=== PATIENT | male | born 1965 ===

== ENCOUNTER 2025-10-09 19:57 | Emergency (ER) | payer MEDICAID ==
[~2025-10-09] VITALS: Ht 182.9 cm; Wt 88.6 kg
[2025-10-09 20:34] LABS: PLATELET COUNT (AUTO) 367 K/uL (150-450); RED BLOOD CELL COUNT(AUTO) 4.75 MIL/uL (4.50-5.90); RED CELL DISTRIBUTION WIDTH 14.3 % (11.5-14.5); WHITE BLOOD COUNT (AUTO) 8.7 K/uL (4.5-11.0)
[2025-10-09 20:39] LABS: COVID AG,FIA SOURCE NASAL SWAB
[2025-10-09 20:43] LABS: CALCIUM, TOTAL 8.7 mg/dL (8.8-10.5); CREATININE 1.10 mg/dL (0.60-1.30); GLOMERULAR FILTR. RATE CALC > 60 mL/min (>60); GLUCOSE,RANDOM 85 mg/dL (70-110); SODIUM SERUM 134 mmol/L (136-145); UREA NITROGEN, BLOOD 24 mg/dL (7-18)
[2025-10-09 21:02] LABS: INFLUENZA TYPE A NEGATIVE FOR TYPE A (NEGATIVE); INFLUENZA TYPE B NEGATIVE FOR TYPE B (NEGATIVE)
[2025-10-09 21:36] LABS: SARS-COV2 (COVID) ANTIGEN,FIA Positive (Negative)
[2025-10-09] MEDS: ACETAMINOPHEN 500 MG TABLET PO ONE (21:53)
[2025-10-09] MEDS: GuaiFENesin/D-METHORPHAN [SUGAR-FREE] 200-20MG/10 ML SYRUP UDCUP PO ONE (21:54)
[2025-10-09 21:55] LABS: TROPONIN I-HIGH SENSITIVITY 9 ng/L (<76)
[2025-10-09] MEDS ORDERED: BENZ-227 PO (22:28)
[2025-10-09] MEDS: ALBUTEROL SULFATE 2.5 MG/0.5 ML NEB SOLUTION NEB ONE (22:31)
[2025-10-09] MEDS: IPRATROPIUM BROMIDE 0.5 MG/2.5 ML NEB SOLUTION NEB ONE (22:31)
[2025-10-09] MEDS: ALBUTEROL SULFATE HFA 90 MCG/PUFF 8 GM INHALER IH ONE (22:34)
[2025-10-09 22:50] VITALS: BP 124/77; PULSE 71; RESP 14; TEMP 97.3; O2SAT 100
== END 2025-10-09 22:58 | disposition home or self-care (01) ==
LOC: EMS 19:57
DX: U07.1 COVID-19 (principal); J40 Bronchitis, not specified as acute or chronic; F17.210 Nicotine dependence, cigarettes, uncomplicated; Z71.6 Tobacco abuse counseling; Z88.0 Allergy status to penicillin; Z98.890 Other specified postprocedural states
CPT/HCPCS: 99285; 96374; 71045; 99406; 87426; 80048; 84484; 85025; 87804; 36415; 94640; 93005; J2919; J3535; J7613